=== PATIENT | male | born 1940 | race Caucasian/White ===

== ENCOUNTER 2016-10-05 11:12 | Emergency (ER) | payer SELFPAY ==
[2016-10-05 12:02] VITALS: RESP 20; TEMP 98.8; O2SAT 99; BMI 28.3
--- NOTE | 2016-10-05 14:19 | RAD ---
PROCEDURE: Radiographs of the Lumbar Spine. HISTORY: back pain COMPARISON: No prior. FINDINGS: BONES: Normal alignment. No listhesis. No fracture. 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 IMPRESSION: Disc and facet degeneration at L5-S1
--- NOTE | 2016-10-05 14:23 | ED PDOC ---
Arrival/HPI - General Chief Complaint: Back Pain Time Seen by Provider: 10/05/16 12:12 Historian: Patient - History of Present Illness Narrative History of Present Illness (Text): 10/05/16 14:20 76yo male with PMHx of Hypertension and Diabetes who present with complaint of lower back pain x 4days. The son who was by the bedside notes chronic history of back pain. States he usually get unknown injection while he was in [place], but came to [place] a month ago. states he took Naprosyn and flexeril at home without relieve. Pain is worse with any movement. He denies any ripping/tearing upper back pain, focal weakness, urinary symptoms, abdominal pain, urinary/ fecal incontinence, hematuria, any other complaint. Past Medical History - Provider Review Nursing Documentation Reviewed: Yes - Infectious Disease Hx of Infectious Diseases: None - Endocrine/Metabolic Hx Diabetes Mellitus Type 1: Yes Other/Comment: Insulin - Psychiatric Hx Substance Use: No - Anesthesia Hx Anesthesia: No Hx Anesthesia Reactions: No Hx Malignant Hyperthermia: No Family/Social History - Physician Review Nursing Documentation Reviewed: Yes Family/Social History: Unknown Family HX Smoking Status: Current Some Days Smoker Hx Alcohol Use: No Hx Substance Use: No Allergies/Home Meds Allergies/Adverse Reactions: Allergies No Known Allergies Allergy (Verified 10/05/16 12:32) Review of Systems - Physician Review All systems were reviewed & negative as marked: Yes - Review of Systems Constitutional: Normal Eyes: Normal ENT: Normal Respiratory: Normal Cardiovascular: Normal Gastrointestinal: Normal Genitourinary Male: Normal Musculoskeletal: Back Pain Skin: Normal Neurological: Normal Endocrine: Normal Hemo/Lymphatic: Normal Psychiatric: Normal Physical Exam Vital Signs Reviewed: Yes Vital Signs Temp Pulse Resp BP Pulse Ox 10/05/16 11:58 98.8 F 82 20 97/62 L 99 Temperature: Afebrile Blood Pressure: Normal Pulse: Regular Respiratory Rate: Normal Appearance: Positive for: Well-Appearing, Non-Toxic, Comfortable Pain Distress: None Mental Status: Positive for: Alert and Oriented X 3 - Systems Exam Head: Present: Atraumatic, Normocephalic Pupils: Present: PERRL Extroacular Muscles: Present: EOMI Conjunctiva: Present: Normal Mouth: Present: Moist Mucous Membranes Neck: Present: Normal Range of Motion Respiratory/Chest: Present: Clear to Auscultation, Good Air Exchange. No: Respiratory Distress, Accessory Muscle Use Cardiovascular: Present: Regular Rate and Rhythm, Normal S1, S2. No: Murmurs Abdomen: Present: Normal Bowel Sounds. No: Tenderness, Distention, Peritoneal Signs Back: Present: Midline Tenderness, Paraspinal Tenderness. No: Pain with Leg Raise Upper Extremity: Present: Normal Inspection. No: Cyanosis, Edema Lower Extremity: Present: Normal Inspection. No: Edema Neurological: Present: GCS=15, CN II-XII Intact, Speech Normal Skin: Present: Warm, Dry, Normal Color. No: Rashes Psychiatric: Present: Alert, Oriented x 3, Normal Insight, Normal Concentration Medical Decision Making ED Course and Treatment: 10/05/16 14:24 LS xray - [facility] PT was ambulatory in ED. States pain improved in ED with medication. He will be DC home with Percocet for pain. Advised to f/u with ortho. TRT ED for any new or worsening symptoms. - RAD Interpretation Radiology Orders: 10/05/16 12:32 LS SPINE WITH OBL > 18 YRS OLD [RAD] Stat - Medication Orders Current Medication Orders: Discontinued Medications Cyclobenzaprine HCl (Flexeril) 10 mg PO STAT STA Stop: 10/05/16 12:33 Last Admin: 10/05/16 13:00 Dose: 10 mg Ketorolac Tromethamine (Toradol) 60 mg IM STAT STA Stop: 10/05/16 12:33 Last Admin: 10/05/16 13:00 Dose: 60 mg Disposition/Present on Arrival - Present on Arrival Any Indicators Present on Arrival: No History of DVT/PE: No History of Uncontrolled Diabetes: No Urinary Catheter: No History of Decub. Ulcer: No History Surgical Site Infection Following: None - Disposition Have Diagnosis and Disposition been Completed?: Yes Diagnosis: Back pain Disposition: HOME/ ROUTINE Disposition Time: 14:25 Patient Plan: Discharge Condition: STABLE Discharge Instructions (ExitCare): Chronic Back Pain (ED) Additional Instructions: Follow up with orthopedist/Pain management Return to ED for any new or worsening symptoms Prescriptions: oxyCODONE/Acetaminophen [Percocet 5/325 mg Tab] 1 tab PO Q6 #6 tab Referrals: PCP,NO [Primary Care Provider] - Follow up with primary Juan Patel DO [Staff Provider] - Follow up with primary
[2016-10-05 15:05] VITALS: BP 136/84; PULSE 72
== END 2016-10-05 15:04 | disposition home or self-care (01) ==
LOC: ED 11:12
DX: M54.5 Low back pain (principal)
CPT/HCPCS: 72110; 96372; 99282; J1885